=== PATIENT | female | born 1995 | race Caucasian/White ===

== ENCOUNTER → 2020-10-07 16:14 | Outpatient (BNVA) | payer BC, SELFPAY | PROVIDERS: Visit Provider Nurse Practitioner Women's Health | DX: N93.9 Abnormal uterine and vaginal bleeding, unspecified (principal) | CPT/HCPCS: 84439; 84443; 84702; 85025; 87491; 87591; 87661 ==

== ENCOUNTER → 2020-11-10 14:19 | Outpatient (BNVA) | payer BC, SELFPAY | PROVIDERS: Visit Provider Nurse Practitioner Women's Health | DX: N93.9 Abnormal uterine and vaginal bleeding, unspecified (principal) | CPT/HCPCS: 76830; 81025; 88305 ==

== ENCOUNTER → 2020-11-19 10:11 | Outpatient (BNVA) | payer BC, SELFPAY | PROVIDERS: Visit Provider Obstetrics & Gynecology | DX: N93.9 Abnormal uterine and vaginal bleeding, unspecified (principal) | CPT/HCPCS: 87635 ==

== ENCOUNTER 2020-11-24 10:54 | Day surgery (SDC) | payer BC, SELFPAY ==
[2020-11-23 15:42] VITALS: BMI 22.4
[2020-11-24 11:10] VITALS: BP 117/79; PULSE 83; RESP 18; TEMP 36.3; O2SAT 100
--- NOTE | 2020-11-24 11:16 | W.PM.OPSUD ---
Surgery/Procedure H&P Update DATE OF PROCEDURE: November 24, 2020 DATE H&P PERFORMED: 11/19/20 H&P UPDATE INFORMATION: I have reviewed H&P completed within last 30 days, I have examined patient prior to procedure and No changes to prior documentation PREOP DIAGNOSIS: Abnormal uterine bleeding PLANNED PROCEDURE: Operation Date: 11/24/20 11:30 Proposed Procedures p Dilation And Curettage (D&C) 49809 N93.9(Not Applicable) - Samir Bird MD
[2020-11-24] MEDS: sodium chloride 0.9% 500 ML IV (11:45)
[2020-11-24] MEDS: sodium chloride 0.9% 1,000 ML 30 ML IV (11:45)
[2020-11-24] MEDS: scopolamine 1.5 Patch 1 PATCH TRANSDERMA (11:46)
[2020-11-24 11:48] LABS: OR HCG Qualitative Urine Negative (Negative)
[2020-11-24 12:17] LABS: Basophils # 0.1 10^3/uL (0.0-0.1); Basophils % 0.9 %; Eosinophils # 0.2 10^3/uL (0.0-0.8); Eosinophils % 2.2 %; Hematocrit 39.1 % (37.0-47.0); Hemoglobin 12.6 g/dL (11.5-15.3); Lymphocytes # 2.3 10^3/uL (0.8-4.8); Lymphocytes % 22.1 %; Mean Corpuscular HGB Conc 32.2 g/dL (30.0-36.0); Mean Corpuscular Hemoglobin 27.2 pg (28.0-34.0); Mean Corpuscular Volume 84.4 fL (81-99); Mean Platelet Volume 12.8 fL (7.4-10.4); Monocytes # 0.9 10^3/uL (0.2-0.9); Monocytes % 8.4 %; Neutrophils # 6.94 10^3/uL (1.8-7.7); Neutrophils % 66.2 %; Nucleated Red Blood Cells % 0 %; Platelet Count 189 10^3/cmm (130-400); Red Blood Count 4.63 10^6/uL (4.1-5.3); Red Cell Distribution Width 12.3 % (12.1-15.1); White Blood Count 10.5 10^3/uL (4.0-10.0)
[2020-11-24 12:38] LABS: Add Urine Microscopic? YES; Bilirubin Urine Neg (Negative); Blood Urine 3+ (Negative); Glucose Urine UA Norm (Normal); Ketones Urine Negative (Negative); Leukocyte Esterase Urine 1+ (Negative); Nitrate Urine Negative (Negative); Protein Urine Neg (Negative); Specific Gravity, Urine 1.025 (1.005-1.030); Urine Appearance Clear (CLEAR); Urine Color Yellow (Yellow); Urobilinogen Urine Norm (Negative); pH Urine 5 (5-7)
[2020-11-24 12:39] LABS: Add Urine Culture? No; Bacteria Urine 1+ /hpf; Mucus Urine 3+ /hpf; RBC Urine 0-4 /hpf (0-2); WBC Urine 0-4 /hpf (0-5)
[2020-11-24 12:43] LABS: Anion Gap 13.7 (5-19); Blood Urea Nitrogen 6 mg/dL (6-20); Carbon Dioxide 24 mmol/L (22-29); Chloride 102 mmol/L (98-107); Glomerular Filtration Rate 152.9 mL/min (90-130); Glucose 91 mg/dL (65-115); Osmolality Calculated 279 mOsm/kg (285-295); Potassium 3.7 mmol/L (3.5-5.1); Sodium 136 mmol/L (136-145)
--- NOTE | 2020-11-24 12:48 | P.ANESASSM_ITS ---
Pre-Anesthetic Assessment Pre-Anesthetic Assessment: Height/Weight: Height 1.52 m Weight 52.163 kg Temp Pulse Resp BP Pulse Ox 97.3 F L 83 18 117/79 100 11/24/20 11:10 11/24/20 11:10 11/24/20 11:10 11/24/20 11:10 11/24/20 11:10 Preop Diagnosis: Abnormal uterine bleeding Proposed Procedure: Operation Date: 11/24/20 11:30 Proposed Procedures p Dilation And Curettage (D&C) 92022 N93.9(Not Applicable) - Samir Bird MD Was Beta Crystal taken within 24 hours: N/A Was Clonidine taken within 24 hours: N/A Last intake: Intake Last Liquid Date 11/24/20 Last Liquid Time 09:00 Last Solid Date 11/23/20 Last Solid Time 17:00 Social: Social History: No alcohol and No tobacco Exam: Pre-Anes Outpt Exam: alert, oriented x 3, clear to auscultation bilaterally and regular rate & rhythm Airway: Submandibular: WNL Cervical ROM: WNL MP: 2 Dentition: Full History/ROS: No significant history except as noted Anesthetic Plan: ASA status: 1 Anesthesia: General Risk of > 500 ml blood loss (7ml/kg in children): No PFSH Anesthesia PFSH: Medical History No pertinent past medical history denies hx: thyroid,htn,dm,dvt/pe PCP: Edith Thakur Surgical History History of appendectomy History of imperforate hymen Hx of tonsillectomy 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-- removed shortly after [place] teeth removed Family History Grandfather Colon cancer Maternal Thyroid disease Maternal Heart disease Great-Maternal Diabetes Paternal Family/Other Ovarian cancer Paternal Aunt Cervical cancer Paternal Aunt Diabetes Paternal Aunt and Uncle Father Hypertension Sister Hypertension Grandmother Diabetes Maternal and Paternal Stroke Maternal Denies family history of Hypercholesteremia Uterine cancer Data Anesthesia CBC & Chem 7: 11/24/20 11:25 11/24/20 11:25 Other Labs: Laboratory Results - last 48 hr 06/11/24/20 11/24/20 11:05 11:05 11:25 WBC 10.5 H RBC 4.63 Hgb 12.6 Hct 39.1 MCV 84.4 MCH 27.2 L MCHC 32.2 RDW 12.3 Plt Count 189 MPV 12.8 H Neut % (Auto) 66.2 Lymph % (Auto) 22.1 [place] % (Auto) 8.4 Eos % (Auto) 2.2 Baso % (Auto) 0.9 Neut # (Auto) 6.94 Lymph # (Auto) 2.3 [place] # (Auto) 0.9 Eos # (Auto) 0.2 Baso # (Auto) 0.1 Nucleated RBC % (auto) 0 Nucleated RBCs # 0.0 Sodium Potassium Chloride Carbon Dioxide Anion Gap BUN Creatinine GFR Calculation Glucose Calculated Osmolality Calcium Urine Color Yellow Urine Appearance Clear Urine pH 5 Ur Specific [place] 1.025 Urine Protein Neg Urine Glucose (UA) Norm Urine Ketones Negative Urine Blood 3+ H Urine Nitrate Negative Urine Bilirubin Neg Urine Urobilinogen Norm Ur Leukocyte Esterase 1+ H Urine RBC 0-4 H Urine WBC 0-4 H Ur Squamous Epith Cells 5-10 H Amorphous Sediment Not Reportable Urine Bacteria 1+ H Urine Mucus 3+ Urine HCG, Qual Negative 11/24/20 11:25 WBC RBC Hgb Hct MCV MCH MCHC RDW Plt Count MPV Neut % (Auto) Lymph % (Auto) [place] % (Auto) Eos % (Auto) Baso % (Auto) Neut # (Auto) Lymph # (Auto) [place] # (Auto) Eos # (Auto) Baso # (Auto) Nucleated RBC % (auto) Nucleated RBCs # Sodium 136 Potassium 3.7 Chloride 102 Carbon Dioxide 24 Anion Gap 13.7 BUN 6 Creatinine 0.5 GFR Calculation 152.9 H Glucose 91 Calculated Osmolality 279 L Calcium 9.0 Urine Color Urine Appearance Urine pH Ur Specific [place] Urine Protein Urine Glucose (UA) Urine Ketones Urine Blood Urine Nitrate Urine Bilirubin Urine Urobilinogen Ur Leukocyte Esterase Urine RBC Urine WBC Ur Squamous Epith Cells Amorphous Sediment Urine Bacteria Urine Mucus Urine HCG, Qual Cardiac Studies: No Data to Display
--- NOTE | 2020-11-24 13:17 | PM.OP ---
Operative Report Date of procedure: November 24, 2020 Pre-op Diagnosis: Abnormal uterine bleeding Post-op diagnosis: same Post-op Findings: Proliferative endometrium Procedure Done: Dilation and curettage via hysteroscopic MyoSure Specimens removed/disposition: Endometrial curettings Surgeon: Samir Bird MD Anesthesia: MAC Estimated blood loss (mL): 10 IV fluids (mL): 1,000 Complications: None Findings: Proliferative endometrium Condition: stable Disposition: PACU Brief History: 25-year-old with abnormal uterine bleeding unresponsive to medical management. Procedure: After informed consent, the risks included but were not limited to bleeding, infection, injury to internal organs. The patient was counseled on a possible laparotomy and on the potential need for hysterectomy. The patient expressed understanding of the risks involved, all questions were answered, and the patient consented to the procedure. The patient was taken to the operating room where general anesthesia was administered. She was placed in the dorsal lithotomy position and prepped and draped in sterile fashion. A time out procedure was performed. The patient was examined under anesthesia and found to have a normal uterus with normal adnexa. A sterile weight speculum was placed in the vagina. The uterus was then gently sounded to 7 cm, and the cervix was dilated. The 0 degrees MyoSure hysteroscope was advanced gently to the uterine fundus while visualizing the monitor. Survey of the uterine cavity showed: Proliferative endometrium, the fundus shows normal proliferative endometrium; left ostium was visualized, and lateral wall with proliferative endometrium; right ostium visualized, and lateral wall with proliferative endometrium; anterior and posterior ladd are with proliferative endometrium; endocervical canal is normal. The MyoSure device was advanced and the direct visualization the myoma stalk, polyp was morcellated without complication. At the end of morcellation the fluid deficit was 340 mL and was estimated at approximately 200 mL were on the floor. There was minimal bleeding noted and the tenaculum removed with goad hemostasis noted. The patient tolerated the procedure well. The patient was taken to the recovery area in stable condition.
[2020-11-24 13:22] VITALS: BP 90/48; PULSE 99; RESP 12; TEMP 36.6; O2SAT 98
[2020-11-24 13:25] VITALS: BP 94/44; PULSE 88; RESP 22; O2SAT 100
[2020-11-24 13:30] VITALS: BP 97/58; PULSE 87; RESP 20; O2SAT 100
--- NOTE | 2020-11-24 13:31 | SUR.PHASEI ---
PT ON RA SLEEPING QUIETLY , DOES NOT AWAKE TO VOICE, GOOD RESP EFFORT NOTED ABD SOFT.
[2020-11-24 13:35] VITALS: BP 97/58; PULSE 97; RESP 19; TEMP 36.5; O2SAT 98
[2020-11-24 13:50] VITALS: BP 104/61; PULSE 92; RESP 18; TEMP 36.2; O2SAT 100
--- NOTE | 2020-11-24 14:32 | ANE.PACU2 ---
Inpatient post-anesthesia follow up: Airway intact: Yes Vital signs: Temperature 97.1 F Pulse Rate 92 Respiratory Rate 18 Blood Pressure 104/61 Pulse Oximetry 100 Oxygen Delivery Me thod Room Air Oxygen Flow Rate 8 Fraction of Inspir ed Oxygen Hydration adequate: Yes Nausea and vomiting: No Pain level: 2 Mental status: Baseline
== END 2020-11-24 14:15 | disposition home or self-care (01) ==
PROVIDERS: Visit Provider Obstetrics & Gynecology
PROC: (CPT 58120; principal; 2020-11-24 11:20)
PROC: 0UDB8ZZ Extraction of Endometrium, Via Natural or Artificial Opening Endoscopic (ICD-10-PCS; CPT 58558; 2020-11-24 11:20)
DX: N93.9 Abnormal uterine and vaginal bleeding, unspecified (principal); Z80.0 Family history of malignant neoplasm of digestive organs; Z82.49 Family history of ischemic heart disease and other diseases of the circulatory system; Z83.3 Family history of diabetes mellitus
CPT/HCPCS: 58558; 36415; 80048; 81001; 84703; 85025; 86850; 86900; 88305; J0690; J1100; J1885; J2250; J2405; J2704; J3010; J7030; J7040

== ENCOUNTER 2020-12-23 21:55 | Emergency (ER) | payer BC, SELFPAY ==
[2020-12-23 22:31] VITALS: BP 122/81; PULSE 97; RESP 18; TEMP 37.3; O2SAT 100; BMI 22.4
[2020-12-24 01:27] VITALS: BP 121/78; PULSE 105; RESP 18; O2SAT 99
--- NOTE | 2020-12-24 01:34 | ED_ITS ---
HPI - General Adult General: Chief complaint: General Medical Stated complaint: headache, chills,fever Time Seen by Provider: 12/23/20 23:05 History of Present Illness: HPI narrative: Patient is a 25-year-old female comes to the ED with Covid symptoms. Patient says she was exposed to somebody who had Covid approximately 4 days ago. She says yesterday she started developing fever, chills, body aches and a cough. She also reports some nasal congestion drainage along with some nausea and has had an episode of emesis. Patient has not gotten the COVID-19 vaccinations. Associated symptoms: Reports headache(s), nausea and vomiting; Deny chest pain, dyspnea, rash or palpitations Review of Systems Const: Reports: fever(s), chills and body aches; Denies: fatigue Eyes: Denies: change in vision or eye discomfort ENMT: Denies: throat pain, odynophagia, nasal discharge or nasal congestion Card: Denies: chest pain, palpitations, edema, swelling of feet/ankles, dyspnea on exertion or orthopnea Resp: Reports: non-productive cough; Denies: dyspnea or productive cough GI: Reports: nausea and vomiting; Denies: abdominal pain, diarrhea, constipation or hematochezia : Denies: flank pain, dysuria or hematuria Musc: Denies: neck pain, back pain or extremity swelling Skin/Breast: Denies: rash or new lesions Neuro: Reports: headache(s); Denies: numbness in extremities or weakness in extremities PFS ED PFSH: Medical History Aftercare following surgery of the genitourinary system No pertinent past medical history denies hx: thyroid,htn,dm,dvt/pe PCP: Edith Thakur Surgical History H/O dilation and curettage 11/24/2020- dilation and curettage via hyteroscopic myosure performed by Dr. 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-- removed shortly after [place] teeth removed Family History Grandfather Colon cancer Maternal Thyroid disease Maternal Heart disease Great-Maternal Diabetes Paternal Family/Other Ovarian cancer Paternal Aunt Cervical cancer Paternal Aunt Diabetes Paternal Aunt and Uncle Father Hypertension Sister Hypertension Grandmother Diabetes Maternal and Paternal Stroke Maternal Denies family history of Hypercholesteremia Uterine cancer Social History Smoking and tobacco status: current every day smoker e-cigarettes E-Cigarette Details: vaporizer device and with nicotine E-cig/vape details: multiple times per day Alcohol intake: current Alcohol intake frequency: holidays/special occasions only Alcohol type: beer, wine and hard liquor Female Reproductive History: Date of last menstrual period: 12/21/20 Physical Exam Const: COMMON NORMALS: no acute distress, patient oriented x3, healthy appearing and alert GENERAL APPEARANCE: cooperative and comfortable HENMT: COMMON NORMALS: normocephalic HEAD & SCALP: normocephalic MOUTH: Normal oral and palatal mucosa present THROAT: posterior oropharynx normal and uvula midline Neck/C-Spine: COMMON NORMALS: supple GENERAL: Yes normal visual inspection Resp: COMMON NORMALS: normal respiratory effort, No retractions, No use of accessory muscles and clear to auscultation bilaterally EFFORT & INSPECTION: Yes able to speak in complete sentences, No tachypneic, No respiratory distress and No labored AUSCULTATION: clear to auscultation bilaterally Cardio: COMMON NORMALS: regular rate, regular rhythm, S1 normal heart sound present, S2 normal heart sound present, No gallops present (Cardio), No clicks present (Cardio), No murmurs present (Cardio) and Peripheral pulses 2+ throughout RATE: regular rate RHYTHM: regular rhythm HEART SOUNDS: S1 normal heart sound present and S2 normal heart sound present PERIPHERAL PULSES: Peripheral pulses 2+ throughout GI: COMMON NORMALS: Normal to inspection, nondistended, normoactive bowel sounds present, Soft to palpation, non-tender and no masses PALPATION: Yes Soft to palpation : COMMON NORMALS: Yes no CVA tenderness BLADDER/KIDNEY EXAM: Yes no CVA tenderness Back/Pelvis: COMMON NORMALS: no CVA tenderness Extremity: COMMON NORMALS: normal to inspection Neuro: COMMON NORMALS: patient oriented x3 and moves all extremities SENSORIUM/ORIENTATION: Yes alert Skin: GENERAL SKIN EXAM: dry skin Course Vital Signs: Vital signs: Vital Signs Temperature 99.2 F 12/23/20 22:31 Pulse Rate 105 H 12/24/20 01:27 Respiratory Rate 18 12/24/20 01:27 Blood Pressure 121/78 12/24/20 01:27 Pulse Oximetry 99 12/24/20 01:27 MDM - General Adult MDM Narrative: Medical decision making narrative: Patient is a 25-year-old female comes to the ED with Covid symptoms and has known Covid exposure. Patient is having symptoms of some nausea, cough, fever, body aches and chills. Exam of patient shows a healthy 25-year-old female no acute distress or pain. Lungs are clear to auscultation bilaterally. Patient's rapid Covid swab was positive here in the ED. Vitals are stable. She is stable for discharge home. She was instructed on self quarantine and discharged home with some Zofran for nausea. Drink plenty fluids to stay hydrated. Return to precautions given. Patient understood agree with plan. Lab Data: Attestation: I reviewed the patient's lab results. Labs: Lab Results 12/24/20 Range/Units 01:34 SARS-CoV-2 Ag (Rap id) Positive H (Negative) Discharge Plan Discharge Patient Disposition: Home Clinical Impression: COVID-19 Condition: Stable Prescriptions: New ondansetron 4 mg tablet,disintegrating 4 mg PO Q8H PRN (Reason: nausea and vomiting) Qty: 12 RF: 0 No Action norethindrone acetate 5 mg tablet 5 mg PO DAILY Qty: 90 RF: 3 ibuprofen 800 mg tablet 800 mg PO TID PRN (Reason: pain) Qty: 60 RF: 0 Discharge Orders: Discharge ED (Routine); Ordered 12/24/20 Ordered By: Hola Barragan Discharge Diet: Regular Discharge Activity: Increase activity as tolerated Patient Instructions: Viral Syndrome (ED) Activity Restrictions/Additional Instructions: Follow-up with medical provider as directed in 7 to 10 days for reevaluation. Self quarantine for the next 10 days starting from the day symptoms started. Take medications as prescribed. Take [id number] Tylenol or Motrin for any fevers. Drink plenty fluids and stay hydrated. Return to the ER or your medical provider if condition worsens. Please read and understand discharge instructions. Thank you for choosing [facility] for your healthcare needs today. Please realize this is an emergency room and that we are providing you with a medical screening exam and this may not be complete and all inclusive of all the testing and or work up that you may need to determine your ailment or severity of your illness. It is very important that you follow up as instructed or that you return to the Emergency Department should you have concerns or if your condition changes or worsens in any way. Coding Level of Care Code ED Field Identification Specialist for Chg Fwd Exam Comprehensive
[2020-12-24 02:14] LABS: SARS Covid-2 Antigen Positive (Negative)
== END 2020-12-24 02:49 | disposition home or self-care (01) ==
PROVIDERS: Emergency Medicine; Emergency Provider Physician Assistant
DX: U07.1 COVID-19 (principal); F17.210 Nicotine dependence, cigarettes, uncomplicated
CPT/HCPCS: 87426; 99282